=== PATIENT | male | born 1955 | race Caucasian/White ===

== ENCOUNTER 2021-09-21 15:05 | Emergency (ER) | payer MEDICARE, MEDICAID, SELFPAY ==
--- NOTE | 2021-09-21 15:11 | ED.EAR ---
HPI - Ear Problem General Chief complaint: Ear Stated complaint: loss of hearing Time Seen by Provider: 09/21/21 15:15 Source: patient, RN notes reviewed and old records reviewed Mode of arrival: ambulatory Limitations: no limitations History of Present Illness HPI Narrative: 66-year-old male presents to the [facility] with complaints of decreased hearing in bilateral ears. Patient denies any past medical history, does not have a primary care provider. Denies headaches, blurry vision, change in vision. Walks with a normal steady gait. Denies any ear pain just reports a decreased hearing bilaterally MD Complaint: decreased hearing Related Data Home Medications Medication Instructions Recorded Confirmed No Home Medications 07/10/21 09/21/21 Allergies Allergy/AdvReac Type Severity Reaction Status Date / Time No Known Allergies Allergy Verified 09/21/21 15:09 Review of Systems Review of Systems: All systems reviewed & are unremarkable except as noted in HPI and below Constitutional: Constitutional: Reports no additional constitutional complaints, Denies chills and Denies fever(s) Eyes: Eyes: Reports no additional eye complaints ENT: Reports as per HPI, Denies change in voice, Denies dental pain, Denies vertigo, Denies dizziness and Denies throat swelling Comments: Decreased hearing bilateral Cardiovascular: Cardiovascular: Reports no additional cardiovascular complaints, Denies chest pain, Denies rapid heart rate, Denies radiating jaw, neck or arm pain, Denies dyspnea and Denies slow heart rate Respiratory: Respiratory: Reports no additional respiratory complaints, Denies cough and Denies dyspnea Gastrointestinal: Gastrointestinal: Reports no additional gastrointestinal complaints, Denies abdominal pain, Denies nausea and Denies vomiting Musculoskeletal: Musculoskeletal: Reports no additional musculoskeletal complaints Integumentary/Breasts: Skin/Breast: Reports system reviewed and no additional complaints, except as docu Neurologic: Reports system reviewed and no additional complaints, except as documented, Denies confusion, Denies vertigo, Denies dizziness, Denies syncope, Denies headache(s), Denies focal weakness, Denies numbness and Denies weakness Psychiatric: Psychiatric: Reports no additional psychiatric complaints Allergic/Immunologic: Allergic/Immunologic: Reports no additional allergic/immunologic complaints and Denies throat swelling PMFSH Past Medical History Medical History (Updated 09/21/21 @ 19:25 by Ashley Hoffmann APRN) No significant medical problems Family History Family History Sibling Family history of emphysema Family history of heart disease in male family member before age 55 Father Family history of heart disease in male family member before age 55 Other Family history of cardiovascular disease Hypertension Social History Social History (Updated 09/21/21 @ 19:25 by Ashley Hoffmann APRN) Alcohol intake: never Gender identity (if verbalized by the patient): Male Comments At the time of my signature, I reviewed and agree with the nursing past medical, surgical, social, and family history. There is no relevant family history pertinent to the patient complaint. Exam Const: General: no acute distress, ill appearing chronically and well groomed Nutritional Appearance: well nourished and thin Orientation/consciousness: patient oriented x3 Limitations: no limitations Other: Appeared much older than stated age HENMT: Head: normal to inspection Ears: external ears normal and Abnormal EAC present cerumen impaction (Partial removal, unable to visualize TM) bilateral General nose exam: Normal external nose present and Normal nasal mucous membranes and turbinates present Face and sinus: normal facial exam Mouth: Yes Normal oral and palatal mucosa present Throat: posterior oropharynx normal, tonsils normal and uvula midli
[2021-09-21 15:14] VITALS: BP 203/135; PULSE 102; RESP 16; TEMP 36.8; O2SAT 100
[2021-09-21 15:35] VITALS: BP 160/100
== END 2021-09-21 15:45 | disposition home or self-care (01) ==
PROVIDERS: Emergency Provider Nurse Practitioner
DX: H61.23 Impacted cerumen, bilateral (principal)
CPT/HCPCS: 69210; 99212; G0463